=== PATIENT | male | born 1945 | race Caucasian/White ===

== ENCOUNTER 2017-02-18 13:12 | Observation (INO) | payer MEDICARE ==
[2017-02-18] MEDS ORDERED: Albuterol Sulfate 2.5 mg/3 ml Neb ONE (13:32)
[2017-02-18 13:53] LABS: Hemoglobin 14.5 g/dL (14.0-18.0); Mean Corpuscular HGB CONC 32.4 g/dL (32.0-36.0); Mean Corpuscular Hemoglobin 32.5 pg (27.0-31.0); RBC Distribution Width 12.7 % (11.5-14.5); Red Blood Cell (RBC) Count 4.45 mill/uL (4.70-6.10); White Blood Cell (WBC) Count 6.7 thou/uL (4.8-10.8)
[2017-02-18 14:03] LABS: #Monocytes 0.6 thou/uL (0.11-0.59); %Basophils 0.1 % (0.0-1.0); %Eosinophils 0.3 % (0.0-10.0); %Lymphocytes 15.6 % (21.0-51.0); %Monocytes 9.4 % (0.0-10.0); %Neutrophils 74.7 % (42.0-75.0); Mean Platelet Volume 8.6 fL (7.4-10.4); PLT Morphology Comment Appears Decreased; Platelet Count 115 thou/uL (130-400); RBC Morphology Normal
[2017-02-18 14:12] LABS: ALT (SGPT) 24 U/L (8-55); AST (SGOT) 26 U/L (5-34); Albumin 3.8 g/dL (3.4-4.8); Alkaline Phosphatase 63 U/L (40-150); Anion Gap 10 mmol/L (10-20); BUN (Urea Nitrogen) 16 mg/dL (8.4-25.7); Bilirubin, Total 1.2 mg/dL (0.2-1.2); CK (CPK) 75 U/L (30-200); Calc. Creatinine Clearance 0 mL/min (70-130); Calcium 9.2 mg/dL (7.8-10.44); Carbon Dioxide 32 mmol/L (23-31); Chloride 100 mmol/L (98-107); Estimated GFR-MDRD 62; Globulin 3.3 g/dL (2.4-3.5); Glucose 94 mg/dL (83-110); Lipase 27 U/L (8-78); Potassium 3.7 mmol/L (3.5-5.1); Protein, Total 7.1 g/dL (5.8-8.1); Sodium 138 mmol/L (136-145)
[2017-02-18 14:15] LABS: CKMB 0.9 ng/mL (0-6.6); Troponin I Less than 0.010 ng/mL (< 0.028)
--- NOTE | 2017-02-18 14:15 | RAD ---
PORTABLE CHEST ONE VIEW: Date: 02-18-17 Time: 2:04 p.m. History: Dyspnea. FINDINGS: Comparison made with exam of 09-15-11. The heart size is normal. The aorta is tortuous. A left sided AICD is present. No focal areas of cons olidation, pneumothorax, or pleural effusions are identified. IMPRESSION: No radiographic evidence of acute cardiopulmonary process. POS: [facility]
[2017-02-18] MEDS ORDERED: Ondansetron HCl/PF 4 MG/2 ML Vial IVP PRN (17:37)
[2017-02-18] MEDS ORDERED: Sodium Chloride 0.9% 1,000 ML IV SCH (17:37)
[2017-02-18] MEDS ORDERED: Ondansetron ODT 4 MG TAB SL PRN (17:37)
[2017-02-18] MEDS ORDERED: Albuterol Sulfate 1.25 MG/3 ML NEB NEB PRN (18:18)
[2017-02-18 19:37] VITALS: BMI 27.2
--- NOTE | 2017-02-18 19:54 | HP ---
DATE OF ADMISSION: 02/18/2017 CHIEF COMPLAINT: Cough, weakness, and fever. HISTORY OF PRESENT ILLNESS: This is a 72-year-old gentleman with a history of Alzheimer dementia; hi story of COPD, followed by Dr. Martienz; history of ischemic cardiomyopathy, followed by Cardiology, who presented to the emergency department with worsening cough, fever, and weakness. The patient was see n in my office on 01/27/2017 with COPD exacerbation and worsening cough. He failed outpatient therap y. He was started on steroid pack as well as antibiotics including azithromycin for atypical bronchi tis. He improved for a few days and then started to worsen again about 4 or 5 years ago. Family sta padmini he had a fever up to 100.8, increased weakness and feeling more off balance. When the daughter cristina isited him today, he was shaky. Presented to the urgent care and was found to be hypoxic with a puls e ox down to 70% with a blood pressure of 70/40. He was sent to the emergency department for evaluat ion. His blood pressure and his pulse ox were not as bad, but were still low. He was evaluated ther e and given IV antibiotics, IV fluid bolus. His labs were normal. His chest x-ray was negative for an infection and lactic acid was normal. He received a nebulizer treatment which significantly impro ute his cough and shortness of breath. He now continues to have the cough, but does not feel short o f breath and is close to his baseline, now being admitted for further evaluation and treatment for pn eumonia and dehydration. PAST MEDICAL HISTORY: Again Alzheimer dementia with aphasia, hypertension, hyperlipidemia, COPD, cor onary artery disease with ischemic cardiomyopathy. MEDICATIONS: Include Flonase, albuterol, aspirin 81 mg daily, atorvastatin 20 mg daily, Avodart 0.5 mg daily, tamsulosin 0.4 mg daily, Plavix 75 mg daily, ranitidine 150 mg b.i.d., carvedilol 12.5 mg b .i.d., losartan 25 mg daily, Namenda 10 mg daily, Celexa 10 mg daily. ALLERGIES: CODEINE, CEPHALEXIN, and CLINDAMYCIN. PAST SURGICAL HISTORY: Umbilical hernia repair, defibrillator placement in 2011, angioplasty in 1993 , coronary artery bypass graft in 1995, cystoscopy in 2016, cholecystectomy in 2003, carotid endarter ectomy in 2005, hospitalization for Staph in his right leg in 2005, hemicolectomy in 2011, colonoscop y in 2011 and 2015, EGD 2012 and 2015. FAMILY HISTORY: Father with coronary artery disease and mental illness. Mother wi th Alzheimer's and stroke. Paternal aunt with cancer. Maternal aunt with lung cancer. SOCIAL HISTORY: He is . He lives at home with his . Quit smoking in 1999 after smoking over 2 packs per day. He is retired. REVIEW OF SYSTEMS: As per the history of present illness. HEENT: Some congestion. Denies headache, visual or hearing changes. Denies nasal congestion. CARDIAC: Denies chest pain or palpitations. PULMONARY: Positive cough, positive shortness of breath, positive dyspnea on exertion. GASTROINTESTINAL: Denies nausea, vomiting, abdominal pain, melena or hematochezia. GENITOURINARY: History of BPH. Denies dysuria or hematuria. NEUROLOGIC: History of dementia, some weakness. No falls at home. MUSCULOSKELETAL: Denies joint pains at this time. PHYSICAL EXAMINATION: VITAL SIGNS: In the emergency department, temperature 99.0, pulse 66, respirations 16, blood pressur e 115/62, pulse ox is 98% on room air. GENERAL: He is awake and alert. He has some conversational dyspnea. No signs of distress. Mucosa is moist. NECK: Supple. HEART: Regular rate and rhythm with 2/6 systolic ejection murmur. LUNGS: With scattered rhonchi and occasional expiratory wheezes. ABDOMEN: Soft. EXTREMITIES: No clubbing, cyanosis or edema. 2+ peripheral pulses bilaterally. LABORATORY DATA: White blood cell count 6700, hemoglobin and hematocrit 14.5 and 44.7, and platelets of 115 with normal indices. Sodium 138, potassium 3.7, chloride 100, CO2 32, BUN and creatinine 16 and 1.15. Serum glucose of 94. Lactic acid was normal at 1.6. AST and ALT are normal. Cardiac enz ymes are negative. BNP was 47.7. Lipase of 27. Chest x-ray showed no active disease. Flu swab was negative. ASSESSMENT AND PLAN: This is a 72-year-old gentleman with a history of chronic obstructive pulmonary disease, coronary artery disease, Alzheimer's dementia, now with pneumonitis and episode of hypoxemi a. 1. Pneumonitis, atypical, failed outpatient therapy. We will continue IV Levaquin while in the hosp ital and then transition to p.o. Levaquin. I will continue neb treatments as he possibly had mucus p lugging which improved with the nebulizer treatments. I will arrange for outpatient nebulizer as loan ortez. 2. Chronic obstructive pulmonary disease. We will continue neb treatments. No need for steroids at this time, but we will monitor him closely. 3. Coronary artery disease, stable. We will continue his home meds. 4. Hypertension, stable. 5. Alzheimer's dementia. We will continue his outpatient meds as well. 6. Code status: The patient and family desire him to be a FULL CODE.
[2017-02-18] MEDS: Sodium Chloride 0.9% 1,000 ML IV SCH (20:39)
[2017-02-19] MEDS: Sodium Chloride 0.9% 1,000 ML IV SCH (04:51)
[2017-02-19] MEDS ORDERED: traMADol HCl 50 MG TAB PO PRN (07:56)
[2017-02-19] MEDS ORDERED: guaiFENesin/DM ER PO PRN (07:56)
[2017-02-19] MEDS ORDERED: Aspirin 81 mg Enteric Coated Tablet PO SCH (09:00)
[2017-02-19] MEDS ORDERED: Atorvastatin Calcium 20 MG TAB PO SCH (09:00)
[2017-02-19] MEDS ORDERED: Fluticasone Propionate Nasal Spray 16 gm Bottle NASAL SCH (09:00)
[2017-02-19] MEDS ORDERED: Loratadine 10 MG TAB PO SCH (09:00)
[2017-02-19] MEDS ORDERED: Famotidine 20 MG TAB PO SCH (09:00)
[2017-02-19] MEDS ORDERED: Carvedilol 25 MG TAB PO SCH (09:00)
[2017-02-19] MEDS ORDERED: Betamethasone 0.1% Cream 15 GM TUBE TOP SCH (09:00)
[2017-02-19] MEDS ORDERED: Losartan 25 MG TAB PO SCH (09:00)
[2017-02-19] MEDS ORDERED: Tamsulosin HCl 0.4 MG CAP PO SCH (09:00)
[2017-02-19] MEDS ORDERED: Dutasteride 0.5 MG CAP PO SCH (09:00)
[2017-02-19] MEDS ORDERED: Citalopram 20 MG TAB PO SCH (09:00)
[2017-02-19] MEDS ORDERED: Clopidogrel Bisulfate 75 MG TAB PO SCH (09:00)
--- NOTE | 2017-02-19 09:36 | DIS ---
ADMISSION DIAGNOSES: 1. Bronchopneumonia. 2. Chronic obstructive pulmonary disease. DISCHARGE DIAGNOSES: 1. Bronchopneumonia, improved. 2. Status post hypoxic episode. OTHER DIAGNOSES: Alzheimer's dementia, chronic obstructive pulmonary disease, hypertension, hyperlip idemia, benign prostatic hypertrophy. PROCEDURES: IV antibiotics, nebulizer treatments. HOSPITAL COURSE: This is a 72-year-old gentleman with a history of Alzheimer's, history of COPD, his tory of coronary disease who presented to the emergency department with worsening cough, fever, and w eakness. He was seen in the office on 01/27/2017 for bronchitis. He failed outpatient therapy with steroids and antibiotics. He presented to the emergency department with worsening cough. He initial ly presented to Urgent Care. He was found to be hypoxic with a pulse ox in the 70-80% and low blood pressure. He was sent to the emergency department for further evaluation. He was not septic. On ev aluation, his chest x-ray was negative. Lactic acid was normal. He received DuoNeb treatment in the ER with significant improvement of his cough and shortness of breath. He was observed overnight wit h IV antibiotics, IV fluids and continued to improve. He appears to be back to his baseline except f or occasional cough. He is now being discharged home on antibiotics, neb treatments and close follow up. DISCHARGE PHYSICAL EXAMINATION: VITAL SIGNS: Temperature 98.9 which is his T-max, pulse of 74, respirations 14-20, blood pressure 11 6/67, pulse ox 94-97% on room air. GENERAL: He is awake and alert, in no acute distress. Speech is clear. No signs of distress. HEENT: Mucosa is moist. NECK: Supple. HEART: Regular rate and rhythm. LUNGS: With occasional rhonchi, but no wheezes or rales. ABDOMEN: Soft. EXTREMITIES: No edema. DISCHARGE LABORATORY DATA: Labs were reviewed. White blood cell count 6.7. Again, chest x-ray show ed no active disease. DISCHARGE MEDICATIONS: Levaquin 500 mg daily for 5 more days, DuoNeb q.4h. p.r.n. cough, aspirin 81 mg daily, atorvastatin 20 mg daily, carvedilol 12.5 mg b.i.d., Zyrtec 10 mg daily, citalopram 10 mg d aily, Plavix 75 mg daily, Aricept 10 mg at bedtime, Avodart 0.5 mg daily, fluticasone daily, guaifene sin p.r.n., again, DuoNeb q.4 hours p.r.n., losartan 25 mg daily, Namenda 10 mg b.i.d., ranitidine 15 0 mg b.i.d., Flomax 0.4 mg daily. FOLLOWUP INSTRUCTIONS: The patient to follow up in my office within the next week.
[2017-02-19 12:04] VITALS: BP 102/61; TEMP 98.1
[2017-02-19] MEDS ORDERED: Donepezil HCl 10 MG TAB PO SCH (21:00)
--- NOTE | 2017-03-13 15:14 | EKG ---
Test Reason : SOB Blood Pressure : / mmHG Vent. Rate : 073 BPM Atrial Rate : 076 BPM P-R Int : 000 ms QRS Dur : 118 ms QT Int : 384 ms P-R-T Axes : 000 049 025 degrees QTc Int : 423 ms Electronic atrial pacemaker Inferior-posterior infarct , age undetermined Abnormal ECG Confirmed by CHENTE GIRALDO, CECILIO ([id number]), editor [employer] JONY ESPITIA ([id number]) on 03/13/2017 3:14:14 PM Referred By: Confirmed By:CECILIO ELDRIDGE MD
== END 2017-02-19 12:24 | disposition home or self-care (01) ==
LOC: ERS 13:12 → T4-B 14:33
PROVIDERS: ADMIT Family Medicine; ATTEND Family Medicine
DX: J44.0 Chronic obstructive pulmonary disease with (acute) lower respiratory infection (principal); J18.0 Bronchopneumonia, unspecified organism; R09.02 Hypoxemia; G30.9 Alzheimer's disease, unspecified; F02.80 Dementia in other diseases classified elsewhere, unspecified severity, without behavioral disturbance, psychotic disturbance, mood disturbance, and anxiety; R47.01 Aphasia; E78.5 Hyperlipidemia, unspecified; N40.0 Benign prostatic hyperplasia without lower urinary tract symptoms; I10 Essential (primary) hypertension; I25.5 Ischemic cardiomyopathy; I25.2 Old myocardial infarction; I25.10 Atherosclerotic heart disease of native coronary artery without angina pectoris; Z79.82 Long term (current) use of aspirin; Z79.02 Long term (current) use of antithrombotics/antiplatelets; Z79.899 Other long term (current) drug therapy; Z88.5 Allergy status to narcotic agent; Z88.1 Allergy status to other antibiotic agents; Z82.3 Family history of stroke; Z95.5 Presence of coronary angioplasty implant and graft; Z95.810 Presence of automatic (implantable) cardiac defibrillator; Z90.49 Acquired absence of other specified parts of digestive tract; Z98.890 Other specified postprocedural states
CPT/HCPCS: 71045; 80053; 82550; 82553; 83605; 83690; 83880; 84484; 85025; 87040; 87149 ×2; 87804 ×2; 93005; 94640 ×2; 94644; 96361 ×3; 96365; 96366; 99285; G0378; 36415; J1956; J7611; J7620

== ENCOUNTER 2017-05-25 11:40 | Outpatient (CLI) | payer MEDICARE ==
--- NOTE | 2017-05-25 12:36 | RAD ---
PA AND LATERAL CHEST: INDICATIONS: Dyspnea. COMPARISON: Prior exam dated 08/24/2016. FINDINGS: Chronic lung changes are stable. Cardiomegaly is similar. AICD and sternotomy changes are similar. No acute osseous abnormality is evident. Cholecystectomy clips are seen within the upper abdomen. IMPRESSION: 1. No acute abnormality. 2. Chronic lung changes, as above POS: [facility]
== END 2017-05-25 11:41 | disposition home or self-care (01) ==
LOC: RAD 11:40
PROVIDERS: ATTEND Internal Medicine Pulmonary Disease
DX: R06.00 Dyspnea, unspecified (principal); J98.4 Other disorders of lung
CPT/HCPCS: 71046

== ENCOUNTER 2018-04-14 11:30 | Outpatient (CLI) | payer MEDICARE ==
--- NOTE | 2018-04-14 12:32 | RAD ---
PA AND LATERAL CHEST: History: Dyspnea. Comparison: 05-25-17 FINDINGS: Heart size is borderline. There is a internal pacemaker device and sternotomy changes. Chronic lung c hanges are seen. IMPRESSION: Chronic lung change, stable chest. POS: [facility]
== END 2018-04-14 11:31 | disposition home or self-care (01) ==
LOC: RAD 11:30
PROVIDERS: ATTEND Internal Medicine Pulmonary Disease
DX: R06.00 Dyspnea, unspecified (principal); R91.8 Other nonspecific abnormal finding of lung field
CPT/HCPCS: 71046